=== PATIENT | male | born 1990 | race Hispanic/Latino ===

== ENCOUNTER 2017-11-21 09:30 | Day surgery (SDC) | payer MEDICAID ==
[~2017-11-21 09:30] MED LIST: ASCO10007 PEG; AUD IH; BUDE52H IH; CARB1DRO4 OP; CETI-261 PEG; CETI-261 PO; CHLO118L5 TP; CHOL50009 PEG; CLOT15CR5 TP; COD113PA3 TP; FAMO40OR2 PEG; HYDR25SU38 RC; IBUP100O20 PEG; LACT10SO9 PEG; METO10L PO; MUPI22OI2 TP; PSEU60TA21 PEG; Q-PAP PEG; SIME40DR51 PEG; SODIUM CHLORIDE 0.9% 1000ML 1,000 ML IV ONE
[2017-11-21 09:41] VITALS: BP 107/71
[2017-11-21 10:08] VITALS: BP 114/75
[2017-11-21 10:13] VITALS: BP 112/76
== END 2017-11-21 10:45 | disposition home or self-care (01) ==
LOC: DAH 09:30 → ENDO 09:30
PROVIDERS: ATTEND Internal Medicine Gastroenterology
DX: K62.6 Ulcer of anus and rectum (principal); K64.0 First degree hemorrhoids; K62.89 Other specified diseases of anus and rectum; K52.3 Indeterminate colitis; K59.00 Constipation, unspecified; K63.89 Other specified diseases of intestine; J45.909 Unspecified asthma, uncomplicated; J44.9 Chronic obstructive pulmonary disease, unspecified; D64.9 Anemia, unspecified; N20.0 Calculus of kidney; G71.0 Muscular dystrophy; I50.9 Heart failure, unspecified; Z90.89 Acquired absence of other organs; Z79.899 Other long term (current) drug therapy; Z98.890 Other specified postprocedural states; Z90.49 Acquired absence of other specified parts of digestive tract
CPT/HCPCS: 45331; 88305; 93005; A4606; J7030